=== PATIENT | male | born 1980 | race Caucasian/White ===

== ENCOUNTER 2022-11-22 18:33 | Emergency (ER) | payer SELFPAY ==
[2022-11-22] MEDS ORDERED: Sodium Chloride 0.9% 10 ML Syringe FLUSH PRN (19:45)
[2022-11-22 20:02] LABS: BASOPHILS ABSOLUTE AUTO 0.14 K/uL (0.00-0.10); EOSINOPHILS ABSOLUTE AUTO 0.17 K/uL (0.00-0.40); EOSINOPHILS PERCENT AUTO 1.2 % (0.0-5.4); HEMATOCRIT 18.3 % (38.4-49.7); IMMATURE GRAN ABSOLUTE AUTO 0.12 K/uL (0.00-0.23); IMMATURE GRAN PERCENT AUTO 0.8 % (0.0-0.7); LYMPHOCYTES ABSOLUTE AUTO 2.07 K/uL (0.8-3.3); LYMPHOCYTES PERCENT AUTO 14.1 % (11.4-47.7); MEAN CORPUSCULAR HEMOGLOBIN 34.6 pg (31.6-35.5); MEAN CORPUSCULAR HGB CONC 33.9 g/dL (31.6-35.5); MEAN CORPUSCULAR VOLUME 102.2 fL (81.4-99.0); MONOCYTES ABSOLUTE AUTO 1.14 K/uL (0.20-0.90); MONOCYTES PERCENT AUTO 7.7 % (3.3-12.6); NEUTROPHILS ABSOLUTE AUTO 11.09 K/uL (1.0-7.6); NEUTROPHILS PERCENT AUTO 75.2 % (40.0-78.1); PLATELET COUNT,PLT 169 K/uL (130-375); RED BLOOD CELL COUNT 1.79 M/uL (4.14-5.76); WHITE BLOOD CELL COUNT,WBC 14.7 K/uL (3.2-11.0)
[2022-11-22 20:06] LABS: HEMOGLOBIN 6.2 g/dL (12.9-16.9)
[2022-11-22 20:22] LABS: A/G RATIO 0.5 (1.2-2.2); ALANINE AMINOTRANSFERASE,ALT 28 U/L (12-78); ALBUMIN 2.3 g/dL (3.4-5.0); ALKALINE PHOSPHATASE 256 U/L (46-116); ASPARTATE AMNIOTRANSFERASE,AST 172 U/L (15-37); BILIRUBIN TOTAL 2.9 mg/dL (0.2-1.0); BLOOD UREA NITROGEN,BUN 8 mg/dL (7-18); CALCIUM 7.9 mg/dL (8.5-10.1); CARBON DIOXIDE,CO2 23 mmol/L (21-32); CHLORIDE,CL 102 mmol/L (100-108); CREATININE 0.8 mg/dL (0.8-1.3); EST CRCL DRUG DOSING (CG) 116.75 mL/min; ESTIMATED GFR 115 mL/min (>60); GLUCOSE RANDOM 108 mg/dL (74-106); PROTEIN TOTAL,TP 7.2 g/dL (6.4-8.2); SODIUM,NA 136 mmol/L (140-148)
== END 2022-11-22 21:30 | disposition left against medical advice (07) ==
LOC: JP.ED 18:33
DX: K72.10 Chronic hepatic failure without coma (principal); K70.31 Alcoholic cirrhosis of liver with ascites; E72.20 Disorder of urea cycle metabolism, unspecified; D64.9 Anemia, unspecified; F10.20 Alcohol dependence, uncomplicated; F17.210 Nicotine dependence, cigarettes, uncomplicated
CPT/HCPCS: 36415; 80053; 80307; 82140; 83690; 85025; 86850; 86900; 86901; 86920; 86922; 99284

== ENCOUNTER 2022-11-23 17:35 | Emergency (ER) | payer SELFPAY ==
[2022-11-23 18:11] LABS: BASOPHILS ABSOLUTE AUTO 0.11 K/uL (0.00-0.10); BASOPHILS PERCENT AUTO 0.7 % (0.1-1.3); EOSINOPHILS ABSOLUTE AUTO 0.13 K/uL (0.00-0.40); EOSINOPHILS PERCENT AUTO 0.9 % (0.0-5.4); HEMATOCRIT 18.2 % (38.4-49.7); IMMATURE GRAN ABSOLUTE AUTO 0.09 K/uL (0.00-0.23); IMMATURE GRAN PERCENT AUTO 0.6 % (0.0-0.7); LYMPHOCYTES ABSOLUTE AUTO 1.98 K/uL (0.8-3.3); LYMPHOCYTES PERCENT AUTO 13.2 % (11.4-47.7); MEAN CORPUSCULAR HEMOGLOBIN 34.9 pg (31.6-35.5); MEAN CORPUSCULAR HGB CONC 33.5 g/dL (31.6-35.5); MONOCYTES ABSOLUTE AUTO 1.01 K/uL (0.20-0.90); MONOCYTES PERCENT AUTO 6.7 % (3.3-12.6); NEUTROPHILS ABSOLUTE AUTO 11.67 K/uL (1.0-7.6); NEUTROPHILS PERCENT AUTO 77.9 % (40.0-78.1); PLATELET COUNT,PLT 156 K/uL (130-375); RED BLOOD CELL COUNT 1.75 M/uL (4.14-5.76)
[2022-11-23 18:13] LABS: HEMOGLOBIN 6.1 g/dL (12.9-16.9)
[2022-11-23 18:33] LABS: INR 1.4; PROTHROMBIN TIME 13.8 sec (9.2-10.6); PTT,PARTIAL THROMBOPLSTIN TIME 30.2 sec (21.8-27.3)
[2022-11-23 18:36] LABS: A/G RATIO 0.5 (1.2-2.2); ALANINE AMINOTRANSFERASE,ALT 26 U/L (12-78); ALBUMIN 2.2 g/dL (3.4-5.0); ALKALINE PHOSPHATASE 237 U/L (46-116); ANION GAP 13.3 mmol/L (5.0-14.0); ASPARTATE AMNIOTRANSFERASE,AST 166 U/L (15-37); BILIRUBIN TOTAL 2.4 mg/dL (0.2-1.0); BLOOD UREA NITROGEN,BUN 7 mg/dL (7-18); CALCIUM 7.6 mg/dL (8.5-10.1); CARBON DIOXIDE,CO2 24 mmol/L (21-32); CHLORIDE,CL 102 mmol/L (100-108); ESTIMATED GFR 98 mL/min (>60); GLUCOSE RANDOM 125 mg/dL (74-106); POTASSIUM,K 4.3 mmol/L (3.6-5.2); PROTEIN TOTAL,TP 6.9 g/dL (6.4-8.2); SODIUM,NA 135 mmol/L (140-148)
[2022-11-23] MEDS ORDERED: HYDROmorphone 0.5 MG/0.5 ML Syringe IVPUSH ONE ×2 (20:42→23:06)
[2022-11-24] MEDS: HYDROmorphone 0.5 MG/0.5 ML Syringe IVPUSH PRN ×2 (01:56→06:32)
[2022-11-24 02:50] LABS: BODY FLUID TYPE PERITONEAL FLUID
[2022-11-24 03:19] LABS: GLUCOSE,BODY FLUID 115 mg/dL; LACTATE DEHYDROGENASE,BODY FL 63 IU/L
[2022-11-24 03:20] LABS: PROTEIN,BODY FLUID < 2 g/dL
[2022-11-24 03:21] LABS: AMYLASE BODY FLUID TYPE PERITONEAL; AMYLASE,BODY FLUID 18 U/L
[2022-11-24 05:38] LABS: MONONUCLEAR, BODY FLUID 87 %; POLYMORPHONUCLEAR, BODY FLUID 13 %; RBC,BODY FLUID 35 /ul; WBC BODY FLUID 65 /ul
== END 2022-11-24 07:34 | disposition home or self-care (01) ==
LOC: JP.ED 17:35
DX: D63.1 Anemia in chronic kidney disease (principal); K70.31 Alcoholic cirrhosis of liver with ascites; E72.20 Disorder of urea cycle metabolism, unspecified; K72.10 Chronic hepatic failure without coma
CPT/HCPCS: 36415; 36430; 49083; 80053; 80307; 82140; 82150; 82945; 83615; 84157; 85018; 85025; 85610; 85730; 86850; 86900; 86901; 86920; 86922; 87070; 87205; 89050; 96374; 96376; 99284; J1170; P9016; 49082